=== PATIENT | female | born 1970 | race Caucasian/White ===

== ENCOUNTER 2024-12-30 19:44 | Emergency (ER) | payer OTHER, SELFPAY ==
[2024-12-30 20:00] VITALS: BP 126/92; PULSE 90; TEMP 36.9; O2SAT 99; BMI 44.6
--- NOTE | 2024-12-30 20:12 | ED.NAVMDI1 ---
HPI - Nausea/Vomiting/Diarrhea General Chief complaint: Nausea/Vomiting/Diarrhea Stated complaint: CAN'T KEEP ANYTHING DOWN/ VOMITING/ CRAMPS Time Seen by Provider: 12/30/24 20:08 Source: patient Mode of arrival: walk-in Limitations: no limitations History of Present Illness HPI Narrative: 54 year old female presents to the ED for upper abd pain, N/V/D. Onset was 2 days ago. Reports chills. denies fever, urinary symptoms. Reports hx abd hysterectomy, multiple exploratory abd surgeries, SBO. She has been taking Ozempic for 1.5 years. She is accompanied by family. Related Data Previous Rx's ?Medication ?Instructions ?Recorded ondansetron 4 mg disintegrating 4 mg PO Q8H PRN nausea and 12/30/24 tablet vomiting #12 tabs Allergies Allergy/AdvReac Type Severity Reaction Status Date / Time No Known Drug Allergies Allergy Verified 12/30/24 20:00 Review of Systems ROS Constitutional Reports: chills; Denies: fever Cardiovascular Denies: chest pain Respiratory Denies: shortness of breath Gastrointestinal Reports: abdominal pain, nausea, vomiting and diarrhea Genitourinary Denies: painful urination or urinary frequency Musculoskeletal Denies: back pain PFSH PFSH Social History Little interest or pleasure in doing things: not at all Feeling down, depressed, or hopeless: not at all Exam Constitutional Vital Signs, click to edit/add: Last Vital Signs Temp 98.4 F 12/30/24 20:00 Pulse 80 12/30/24 22:07 Resp 16 12/30/24 22:07 BP 132/80 12/30/24 22:07 Pulse Ox 98 12/30/24 22:07 O2 Del Method Room Air 12/30/24 22:07 Common normals: no apparent distress and oriented x3 General appearance: cooperative Eye Common normals: conjunctivae normal and no scleral icterus Neck & C-Spine Common normals: supple Chest Chest: symmetrical chest wall rise Respiratory Common normals: normal respiratory effort Effort & inspection: able to speak in complete sentences and symmetric chest movement Cardio Common normals: regular rate GI Common normals: Normal to inspection, nondistended, normoactive bowel sounds present and soft to palpation Palpation: tender Details: LUQ and RUQ Neuro Common normals: oriented x3 and moves all extremities Sensorium/orientation: awake and alert Speech: speech normal Course Vital Signs Vital signs: Vital Signs Temperature 98.4 F 12/30/24 20:00 Pulse Rate 90 12/30/24 20:00 Respiratory Rate 19 12/30/24 20:00 Blood Pressure 126/92 H 12/30/24 20:00 Pulse Oximetry 99 12/30/24 20:00 Oxygen Delivery Method Room Air 12/30/24 20:00 Temperature 98.4 F 12/30/24 20:00 Pulse Rate 80 12/30/24 22:07 Respiratory Rate 16 12/30/24 22:07 Blood Pressure 132/80 12/30/24 22:07 Pulse Oximetry 98 12/30/24 22:07 Oxygen Delivery Method Room Air 12/30/24 22:07 MDM - Nausea/Vomiting/Diarrhea MDM Narrative Medical decision making narrative: CT scan was negative for acute findings. WBC count was 13.9. Findings were discussed with the patient. She was given a copy of her CT report. She was given IV fluids, Zofran, and Morphine here in the ED. A prescription was provided for Zofran. Follow up with pcp for a recheck, further evaluation and treatment. Return to the ED for worsening symptoms. Differential Diagnosis Differential diagnosis: Likely gastroenteritis, dehydration and other (SBO) Medical Records Attestation: I reviewed the patient's medical records. Lab Data Attestation: I reviewed the patient's lab results. Labs: Lab Results 12/30/24 Range/Units 20:25 WBC 13.9 H (4.0-11.0) 10^3/uL RBC 4.92 (4.20-5.40) 10^6/uL Hgb 15.7 (12.0-16.0) g/dL Hct 44.2 (36.0-48.0) % MCV 89.8 (81.0-99.0) fL MCH 31.9 (26.7-34.0) pg MCHC 35.5 H (29.9-35.2) g/dL RDW 12.0 (11.0-15.0) % Plt Count 305 (150-450) 10^3/uL MPV 9.7 (9.5-13.5) fL Neut % (Auto) 72.2 (43.0-75.0) % Lymph % (Auto) 20.0 L (20.5-60.0) % Desha % (Auto) 6.3 (1.7-12.0) % Eos % (Auto) 0.3 L (0.9-7.0) % Baso % (Auto) 0.3 (0.2-2.0) % Neut # (Auto) 10.0 H (1.4-6.5) 10^3/uL Lymph # (Auto) 2.8 (1.2-3.8) 10^3/uL Desha # (Auto) 0.9 H (0.3-0.8) 10^3/uL Eos # (Auto) 0.0 (0.0-0.7) 10^3/uL Baso # (Auto) 0.0 (0.0-0.1) 10^3/uL Abs Immat Gran (auto) 0.13 H (0.00-0.03) 10^3/uL Imm/Tot Granulo (auto) 0.9 H (0.0-0.5) % Sodium 137 (136-145) mmol/L Potassium 3.8 (3.5-5.1) mmol/L Chloride 98 (98-107) mmol/L Carbon Dioxide 22.0 (21.0-32.0) mmol/L Anion Gap 20.8 BUN 15.0 (7.0-18.0) mg/dL Creatinine 0.99 (0.55-1.02) mg/dL Est GFR ( Amer) >60 (>=60 mL/min/1.73m^2) Est GFR (Non-Af Amer) 58 L (>=60 mL/min/1.73m^2) BUN/Creatinine Ratio 15.2 Glucose 149 H (74-106) mg/dL Calcium 9.6 (8.5-10.1) mg/dL Total Bilirubin 0.9 (0.2-1.0) mg/dL AST 25 (15-37) U/L ALT 23 (14-59) U/L Alkaline Phosphatase 78 (46-116) U/L Total Protein 8.5 H (6.4-8.2) g/dL Albumin 4.3 (3.4-5.0) g/dL Globulin 4.2 g/dL Albumin/Globulin Ratio 1.0 Lipase 20.0 (16.0-77.0) U/L Discharge Plan Discharge Chief Complaint: Nausea/Vomiting/Diarrhea Clinical Impression: Nausea, vomiting, and diarrhea, Abdominal pain Patient Disposition: Home, Self-Care Time of Disposition Decision: 21:39 Condition: Good Mode of Transportation: Private Vehicle Prescriptions / Home Meds: New ondansetron 4 mg tablet,disintegrating 4 mg PO Q8H PRN (Reason: nausea and vomiting) Qty: 12 0RF Print Language: Estonian Instructions: Acute Nausea and Vomiting (ED), Acute Diarrhea (ED), Abdominal Pain (ED) Additional Instructions: Return to the ED for worsening symptoms. Referrals: ABIGAIL THORNTON [Primary Care Provider, Family Practice] - 1 week Discharge Date/Time: 12/30/24 22:10
--- NOTE | 2024-12-30 20:13 | CT_ITS ---
The [address] [address] Patient Name: SUREKHA MONTES DE OCA MRN: [id number] date: 1970 Sex: F Assigned Patient Location: ED.MAIN Current Patient Location: ED.MAIN Accession/Order Number: [id number] Exam Date: 12/30/2024 20:53 Report Date: 12/30/2024 21:27 At the request of: JURGEN ADDISON Procedure: CT abdomen pelvis w con CT ABDOMEN AND PELVIS WITH INTRAVENOUS CONTRAST: CLINICAL HISTORY: upper abd pain COMPARISON: None TECHNIQUE: Spiral images were obtained through the abdomen and pelvis following the administration of intravenous contrast. This CT exam was performed using one or more following dose reduction techniques: Automated exposure control, adjustment of the mA and/or kV according to patient size, or use of iterative reconstruction technique. FINDINGS: Lung Bases: [No focal opacity] Organs:Granulomatous calcifications involving the spleen. Hypoattenuation liver suggestive of fatty infiltration. No focal liver lesion. Cholecystectomy. Otherwise adrenals, kidneys, and pancreas unremarkable.[ GI: No bowel obstruction. No mural thickening. Appendix not visualized. Pelvis:[Hysterectomy. No suspicious adnexal mass.] Peritoneum/Retroperitoneum:Prior retroperitoneal lymph node dissection. Mild aortic plaque. Aorta is not aneurysmal. No free air or free fluid.[ Abd wall/Bones:No suspicious osseous lesion. Multilevel facet arthropathy lumbar spine.[ CT/CT abdomen pelvis w con IMPRESSION: Negative acute inflammatory process or bowel obstruction. Impression dictated by: Zachery Bennett M.D. 12/30/2024 9:27 PM Dictation Location: [place] [address] Electronically authenticated by: [id number] Y Date: 12/30/2024 21:27
[2024-12-30] MEDS: 0.9 % SODIUM CHLORIDE 1,000 ML 999 ML IV (20:26)
[2024-12-30] MEDS: MORPHINE SULFATE 4 MG/ML VIAL IV ×2 (20:26→21:00)
[2024-12-30 20:53] LABS: Hematocrit 44.2 % (36.0-48.0); Hemoglobin 15.7 g/dL (12.0-16.0); Immature Granulocytes Abs Auto 0.13 10^3/uL (0.00-0.03); Immature Granulocytes Pct Auto 0.9 % (0.0-0.5); Lymphocytes Absolute Auto 2.8 10^3/uL (1.2-3.8); Mean Corpuscular HGB Conc 35.5 g/dL (29.9-35.2); Mean Corpuscular Hemoglobin 31.9 pg (26.7-34.0); Mean Corpuscular Volume 89.8 fL (81.0-99.0); Platelet Count 305 10^3/uL (150-450); Red Blood Count 4.92 10^6/uL (4.20-5.40); White Blood Count 13.9 10^3/uL (4.0-11.0)
[2024-12-30 21:08] LABS: Alanine Aminotransferase 23 U/L (14-59); Albumin Globulin Ratio 1.0; Albumin Level 4.3 g/dL (3.4-5.0); Alkaline Phosphatase 78 U/L (46-116); Anion Gap 20.8; Aspartate Amino Transferase 25 U/L (15-37); Blood Urea Nitrogen 15.0 mg/dL (7.0-18.0); Calcium 9.6 mg/dL (8.5-10.1); Carbon Dioxide 22.0 mmol/L (21.0-32.0); Chloride 98 mmol/L (98-107); Estimated GFR (African America >60 (>=60 mL/min/1.73m^2); Estimated GFR (Non-African Ame 58 (>=60 mL/min/1.73m^2); Globulin 4.2 g/dL; Glucose 149 mg/dL (74-106); Lipase 20.0 U/L (16.0-77.0); Potassium 3.8 mmol/L (3.5-5.1); Sodium 137 mmol/L (136-145); Total Protein 8.5 g/dL (6.4-8.2)
[2024-12-30] MEDS: MORPHINE SULFATE 2 MG/ML SYRINGE IV (21:50)
[2024-12-30 22:07] VITALS: BP 132/80; PULSE 80; O2SAT 98
== END 2024-12-30 22:10 | disposition home or self-care (01) ==
PROVIDERS: Nurse Practitioner Family; Emergency Provider Emergency Medicine; PCP Family Medicine
DX: R11.2 Nausea with vomiting, unspecified (principal); R19.7 Diarrhea, unspecified; R10.9 Unspecified abdominal pain; Z90.710 Acquired absence of both cervix and uterus
CPT/HCPCS: 36415; 74177; 80053; 83690; 85025; 96374; 96375; 96376; 99285; J2270; J2405; Q9967